=== PATIENT | female | born 1940 | race Two or more races ===

== ENCOUNTER 2017-08-20 08:17 | Emergency (ER) | payer OTHER ==
[~2017-08-20] VITALS: Ht 157.5 cm; Wt 62.6 kg
[~2017-08-20 08:17] MED LIST: GLUCOTROL10 MG PO; METFORMIN HCL500 MG
[2017-08-20] MEDS ORDERED: LANTUS SOL100 UNIT/1 (08:44)
== END 2017-08-20 12:27 | disposition home or self-care (01) ==
LOC: ER 08:17
DX: K29.70 Gastritis, unspecified, without bleeding (principal)

== ENCOUNTER 2018-11-20 07:16 | Outpatient (CLI) | payer OTHER ==
[~2018-11-20 07:16] MED LIST changes: +LANTUS SOL100 UNIT/1
== END 2018-11-20 07:19 | disposition home or self-care (01) ==
LOC: SONOGRAMA 07:16
DX: E04.1 Nontoxic single thyroid nodule (principal)

== ENCOUNTER 2021-02-19 14:39 | Emergency (ER) | payer OTHER ==
[~2021-02-19] VITALS: Ht 157.5 cm; Wt 63.5 kg
[2021-02-19] MEDS ORDERED: TENORMIN25 MG PO (14:51)
== END 2021-02-19 22:46 | disposition home or self-care (01) ==
LOC: ER 14:39
DX: S30.0XXA Contusion of lower back and pelvis, initial encounter (principal); R53.1 Weakness; I16.0 Hypertensive urgency; I10 Essential (primary) hypertension; W18.39XA Other fall on same level, initial encounter; Y93.89 Activity, other specified; Y92.89 Other specified places as the place of occurrence of the external cause; Y99.8 Other external cause status; Z03.818 Encounter for observation for suspected exposure to other biological agents ruled out

== ENCOUNTER 2021-03-09 11:55 | Emergency (ER) | payer OTHER ==
[~2021-03-09] VITALS: Ht 157.5 cm; Wt 64.4 kg
[~2021-03-09 11:55] MED LIST changes: +TENORMIN25 MG PO
[2021-03-09] MEDS ORDERED: ADULT LOW DOSE81 M1 PO (12:07)
[2021-03-09] MEDS ORDERED: HYDRALAZINE HC100 MG PO (12:09)
[2021-03-09] MEDS ORDERED: NIFEDIPINE ER60 M1 PO (12:12)
[2021-03-09] MEDS ORDERED: PEPCID AC20 MG PO (12:12)
[2021-03-09] MEDS ORDERED: AVAPRO300 MG PO (12:14)
== END 2021-03-09 16:10 | disposition home or self-care (01) ==
LOC: ER 11:55
DX: R11.2 Nausea with vomiting, unspecified (principal)

== ENCOUNTER 2021-04-09 21:05 | Emergency (ER) | payer OTHER ==
[~2021-04-09] VITALS: Ht 157.5 cm; Wt 64.0 kg
[~2021-04-09 21:05] MED LIST changes: +ADULT LOW DOSE81 M1 PO; +AVAPRO300 MG PO; +HYDRALAZINE HC100 MG PO; +NIFEDIPINE ER60 M1 PO; +PEPCID AC20 MG PO
[2021-04-09] MEDS ORDERED: METFORMIN HCL500 M4 PO (21:21)
[2021-04-09] MEDS ORDERED: JANUMET 50-5001 EACH PO (21:21)
[2021-04-09] MEDS ORDERED: SIMVASTATIN20 MG PO (21:22)
[2021-04-09] MEDS ORDERED: IRBESARTAN300 MG PO (21:22)
[2021-04-09] MEDS ORDERED: SEMGLEE100 UNIT/1 SUBCUTANEO (21:22)
[2021-04-09] MEDS ORDERED: ST. JOSEPH ASPI81 M2 PO (21:23)
[2021-04-09] MEDS ORDERED: HYDRALAZINE HCL25 MG PO (21:23)
== END 2021-04-09 23:16 | disposition home or self-care (01) ==
LOC: ER 21:05
DX: K29.70 Gastritis, unspecified, without bleeding (principal); F41.8 Other specified anxiety disorders